=== PATIENT | male | born 1995 | race Hispanic/Latino ===

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

== ENCOUNTER 2017-09-23 18:10 | Emergency (ER) | payer OTHER ==
[~2017-09-23] VITALS: Ht 157.5 cm; Wt 79.8 kg
[~2017-09-23 18:10] MED LIST: AFRIN 12 HOUR0.05 %
[2017-09-23 18:27] VITALS: BP 132/77
[2017-09-23] MEDS ORDERED: DOMEBORO AS (18:52)
== END 2017-09-23 19:00 | disposition home or self-care (01) | DRG 156 ==
LOC: ED 18:10
DX: H60.92 Unspecified otitis externa, left ear (principal)